=== PATIENT | female | born 1995 | race Caucasian/White ===

== ENCOUNTER 2020-02-05 18:30 | Emergency (ER) | payer SELFPAY ==
--- NOTE | ~2020-02-05 | XR_ITS ---
EXAMINATION: XR hand RT min 3V DATE: 02/05/2020 19:07 INDICATION: Right hand pain. Fall. TECHNIQUE: 3 views of right hand were obtained. COMPARISON: None. FINDINGS: There is nonstandard positioning of the hand, which decreases sensitivity. Bone alignment i s normal. No fracture. Joint spaces are well maintained. IMPRESSION: 1. No fracture. Reviewed, dictated and finalized at location A. HEALTH AIDE CAREGIVER IMPRESSION: 1. No fracture.
--- NOTE | ~2020-02-05 | XR_ITS ---
EXAMINATION: XR elbow RT 2V DATE: 02/05/2020 19:06 INDICATION: Right elbow pain. Fall. TECHNIQUE: 2 views of right elbow were obtained. COMPARISON: None. FINDINGS: Bone alignment is normal. No fracture. Joint spaces are well maintained. There is no elbow joint effusion. IMPRESSION: 1. Normal right elbow. Reviewed, dictated and finalized at location A. LLURGICAL LAB TECHNICIAN IMPRESSION: 1. Normal right elbow.
--- NOTE | ~2020-02-05 | XR_ITS ---
EXAMINATION: XR forearm RT 2V DATE: 02/05/2020 19:06 INDICATION: Right forearm pain. Fall. TECHNIQUE: 2 views of right forearm were obtained. COMPARISON: None. FINDINGS: Bone alignment is normal. No fracture. Joint spaces are well maintained. There is no elbow joint effusion. IMPRESSION: 1. Normal right forearm. Reviewed, dictated and finalized at location A. TICS MANAGER IMPRESSION: 1. Normal right forearm.
[2020-02-05 18:35] VITALS: BP 141/74; PULSE 109; RESP 22; TEMP 36.9; O2SAT 100
--- NOTE | 2020-02-05 18:48 | ED.GENADULT ---
HPI - General Adult General Chief complaint: Extremity Injury, Upper Stated complaint: broken finger Source: patient Mode of arrival: ambulatory Limitations: no limitations History of Present Illness HPI narrative: Tara is a 24F with a PMH of ----- that presented to the ED with pain in her right arm. She was roughouseing with her boyfriend at a family function when she fell backwards onto her right arm. She now has pain from the elbow down to the hand. She did not hit her head or lose consciousness. Related Data Home Medications Medication Instructions Recorded Confirmed No Home Medications 02/05/20 02/05/20 Allergies Allergy/AdvReac Type Severity Reaction Status Date / Time No Known Allergies Allergy Verified 02/05/20 19:24 Review of Systems Constitutional: Constitutional: Denies chills, Denies fever(s) and Denies weakness Eyes: Eyes: Reports no additional eye complaints ENT: Reports system reviewed and no additional complaints, except as documented Cardiovascular: Cardiovascular: Reports no additional cardiovascular complaints Respiratory: Respiratory: Reports no additional respiratory complaints Gastrointestinal: Gastrointestinal: Reports no additional gastrointestinal complaints Genitourinary: Genitourinary: Reports no additional female genitourinary complaints Musculoskeletal: Musculoskeletal: Reports as per HPI Integumentary/Breasts: Skin/Breast: Reports system reviewed and no additional complaints, except as docu Neurologic: Reports system reviewed and no additional complaints, except as documented Psychiatric: Psychiatric: Reports no additional psychiatric complaints Endocrine: Endocrine: Reports no additional endocrine complaints Hematologic/Lymphatic: Hematologic/Lymphatic: Reports no additional hematologic/lymphatic complaints Allergic/Immunologic: Allergic/Immunologic: Reports no additional allergic/immunologic complaints Exam Const: General: no acute distress and alert Orientation/consciousness: patient oriented x3 Limitations: No altered mental status HENMT: Head: normal to inspection Other: atraumatic Eyes: Conjunctivae: conjunctivae normal Pupils: Equal, round and reactive pupils present Neck: Neck: normal visual inspection Resp: Effort & Inspection: normal respiratory effort Cardio: Rate: regular rate GI: GI Palp: Yes Soft to palpation and No Tenderness to palpation present (GI) : General: Yes no CVA tenderness Back/Spine/Pelvis: Other: No midline tenderness Skin: General skin exam: normal color Rashes: no rashes Neuro: General: moves all extremities Extrem: General: normal to inspection Other: TTP Psych: Mental Status: mental status grossly normal Course Course Emergency Course: Tara was evaluated. Originally she wanted pain meds but then refused a Toradol shot. After this I offered pills for pain and she still refused but wanted an ice pack. Radiographs were ordered of her arm. EXAMINATION: XR hand RT min 3V DATE: 02/05/2020 19:07 INDICATION: Right hand pain. Fall. TECHNIQUE: 3 views of right hand were obtained. COMPARISON: None. FINDINGS: There is nonstandard positioning of the hand, which decreases sensitivity. Bone alignment is normal. No fracture. Joint spaces are well maintained. IMPRESSION: 1. No fracture. EXAMINATION: XR forearm RT 2V DATE: 02/05/2020 19:06 INDICATION: Right forearm pain. Fall. TECHNIQUE: 2 views of right forearm were obtained. COMPARISON: None. FINDINGS: Bone alignment is normal. No fracture. Joint spaces are well maintained. There is no elbow joint effusion. IMPRESSION: 1. Normal right forearm. EXAMINATION: XR elbow RT 2V DATE: 02/05/2020 19:06 INDICATION: Right elbow pain. Fall. TECHNIQUE: 2 views of right elbow were obtained. COMPARISON: None. FINDINGS: Bone alignment is normal. No fracture. Joint spaces are well maintained. There is no elbow joint effusion. IMPRESSION: 1. Normal right elbow. As radiog
[2020-02-05 19:28] VITALS: PULSE 16
== END 2020-02-05 19:30 | disposition home or self-care (01) ==
PROVIDERS: Emergency Provider Family Medicine
DX: S63.501A Unspecified sprain of right wrist, initial encounter (principal); W19.XXXA Unspecified fall, initial encounter
CPT/HCPCS: 73070; 73090; 73130; 99282; 99284; A4565